=== PATIENT | male | born 1930 | race Caucasian/White ===

== ENCOUNTER 2018-02-10 16:56 | Inpatient (IN) | payer MEDICARE, MEDICAID ==
[~2018-02-10] VITALS: Ht 172.7 cm; Wt 76.5 kg
[2018-02-10 18:27] LABS: BASOPHILS % (AUTO) 0.3 % (0-1); EOSINOPHILS # (AUTO) 0.3 X10'3 (0-0.9); EOSINOPHILS % (AUTO) 1.9 % (0-6); HEMATOCRIT 36.4 % (42.0-52.0); HEMOGLOBIN 11.7 g/dl (14.0-17.9); LYMPHOCYTES # (AUTO) 0.4 X10'3 (1.1-4.8); LYMPHOCYTES % (AUTO) 2.8 % (21-51); MEAN CORPUSCULAR HEMOGLOBIN 28.5 PG (27.0-31.0); MEAN CORPUSCULAR HGB CONC 32.1 % (33.0-36.5); MEAN CORPUSCULAR VOLUME 88.9 FL (78-98); MEAN PLATELET VOLUME 8.6 FL (7.4-10.4); MONOCYTES # (AUTO) 0.3 X10'3 (0-0.9); MONOCYTES % (AUTO) 1.9 % (2-12); NEUTROPHILS # (AUTO) 13.9 X10'3 (1.8-7.7); NEUTROPHILS % (AUTO) 93.1 % (42-75); PLATELET COUNT 328 X10'3 (140-440); RED CELL DISTRIBUTION WIDTH 14.6 % (11.5-14.5); WHITE BLOOD COUNT 14.9 X10'3 (4.5-11.0)
[2018-02-10 18:50] LABS: ALANINE AMINOTRANSFERASE 23 U/L (12-78); ALBUMIN 3.1 G/DL (3.4-5.0); ALBUMIN/GLOBULIN RATIO 0.7 (1.1-1.5); ALKALINE PHOSPHATASE 96 IU/L (46-116); ANION GAP 7 (8-16); ASPARTATE AMINO TRANSFERASE 14 U/L (10-37); BILIRUBIN,TOTAL 0.4 MG/DL (0.1-1.0); BLOOD UREA NITROGEN 29 MG/DL (7-18); CALCIUM 8.7 MG/DL (8.5-10.1); CHLORIDE 100 MMOL/L (99-107); CREATININE 1.53 MG/DL (0.60-1.10); GLUCOSE 210 MG/DL (70-104); INR 1.2 INR; MAGNESIUM 2.4 MG/DL (1.5-2.4); PARTIAL THROMBOPLASTIN TIME 26 SECONDS (22-32); POTASSIUM 4.1 MMOL/L (3.5-5.1); PROTHROMBIN TIME 11.6 SECONDS (9.0-12.0); SODIUM 144 MMOL/L (135-145); TOTAL CARBON DIOXIDE 37.5 MMOL/L (24-32); TOTAL PROTEIN 7.7 G/DL (6.4-8.2); eGFR 43 ML/MIN
[2018-02-10] MEDS ORDERED: normal saline 1000ML IV soln IV ONE (18:55)
[2018-02-10] MEDS ORDERED: pantoprazole 40 MG vial IV ONE (19:50)
[2018-02-10] MEDS ORDERED: octreotide inj. 1,250 MCG in normal saline 250ml IV soln 250 ML IV ONE (21:40)
[2018-02-10] MEDS ORDERED: ondansetron/PF 4mg/2ml inj IV ONE (21:40)
[2018-02-10] MEDS ORDERED: CefTRIAXone 2gm/D5W 50ml 50 ML IV ONE (21:55)
[2018-02-10] MEDS ORDERED: azithromycin/NS 500mg/250ml 250 ML IV ONE (21:55)
[2018-02-10] MEDS ORDERED: tranexamic acid 100mg/ml inj. IV ONE (22:15)
[2018-02-10] MEDS ORDERED: albumin (Human) 5% 250ml 250 ML IV ONE ×2 (22:15→22:20)
[2018-02-10] MEDS ORDERED: normal saline 1000ml 1,000 ML IV ONE ×2 (22:20→23:20)
[2018-02-10 22:23] LABS: BASOPHILS # (AUTO) 0.1 X10'3 (0-0.2); BASOPHILS % (AUTO) 0.9 % (0-1); EOSINOPHILS % (AUTO) 0 % (0-6); HEMATOCRIT 27.3 % (42.0-52.0); HEMOGLOBIN 8.8 g/dl (14.0-17.9); LYMPHOCYTES # (AUTO) 0.3 X10'3 (1.1-4.8); LYMPHOCYTES % (AUTO) 1.7 % (21-51); MEAN CORPUSCULAR HGB CONC 32.4 % (33.0-36.5); MEAN CORPUSCULAR VOLUME 89.4 FL (78-98); MEAN PLATELET VOLUME 8.9 FL (7.4-10.4); MONOCYTES # (AUTO) 0.6 X10'3 (0-0.9); MONOCYTES % (AUTO) 3.8 % (2-12); NEUTROPHILS # (AUTO) 15.5 X10'3 (1.8-7.7); NEUTROPHILS % (AUTO) 93.6 % (42-75); PLATELET COUNT 257 X10'3 (140-440); RED BLOOD COUNT 3.05 X10'6 (4.70-6.10); RED CELL DISTRIBUTION WIDTH 14.8 % (11.5-14.5); WHITE BLOOD COUNT 16.6 X10'3 (4.5-11.0)
[2018-02-10] MEDS ORDERED: metroNIDAZOLE-Flagyl 500mg/NS 100 ML IV STA (22:49)
[2018-02-10] MEDS ORDERED: METO-539 PO (23:23)
[2018-02-10] MEDS: K, MAG and/or Phos replacement - Verify level? MC SCH (23:35)
[2018-02-10] MEDS ORDERED: morphine 2 MG/ML inj. syringe IV PRN (23:35)
[2018-02-10] MEDS ORDERED: morphine 4 MG/ML inj SYRINge IV PRN (23:35)
[2018-02-10] MEDS ORDERED: potassium Cl 20 mEq SR tablet PO PRN ×2 (23:35)
[2018-02-10] MEDS: normal saline 1000ml 1,000 ML IV SCH (23:35)
[2018-02-10] MEDS ORDERED: ondansetron/PF 4mg/2ml inj IV PRN (23:35)
[2018-02-10] MEDS ORDERED: acetaminophen 325mg tablet PO PRN (23:35)
[2018-02-10] MEDS ORDERED: potassium Cl 40MEQ/250ML bag 250 ML IV PRN (23:35)
[2018-02-10] MEDS: pantoprazole 40MG/NS 100ML BAG 100 ML IV SCH (23:39)
[2018-02-10 23:57] LABS: CLARITY,URINE CLEAR (Clear); COLOR,URINE YELLOW (Yellow); GLUCOSE, URINE NEGATIVE (Neg); KETONES,URINE TRACE mg/dl (Neg); LEUKOCYTE ESTERASE ,URINE NEGATIVE (Neg); NITRITES, URINE NEGATIVE (Neg); OCCULT BLOOD,URINE SMALL (Neg); PH,URINE 8.5 (4.8-8.0); PROTEIN,URINE TRACE mg/dl (Neg); UROBILINOGEN,URINE 0.2 E.U/dL (0.2-1.0)
[2018-02-10 23:59] LABS: UA COLLECTION TYPE FOLEY CATH
[2018-02-11] VITALS (31 sets, daily range): BP systolic 99–149; BP diastolic 51–79
[2018-02-11 00:17] LABS: MUCUS STRANDS MANY /LPF (Neg)
[2018-02-11 00:18] LABS: BACTERIA,URINE 1+ /HPF (Neg); SQUAMOUS EPITHELIAL CELL,UR FEW /LPF (FEW)
[2018-02-11 00:28] LABS: PLATELET ESTIMATE NORMAL; TOTAL CELLS COUNTED 100
[2018-02-11] MEDS: pantoprazole 40MG/NS 100ML BAG 100 ML IV SCH ×5 (01:00→19:15)
[2018-02-11 02:01] LABS: ALANINE AMINOTRANSFERASE 14 U/L (12-78); ALBUMIN 2.5 G/DL (3.4-5.0); ALBUMIN/GLOBULIN RATIO 0.9 (1.1-1.5); ALKALINE PHOSPHATASE 59 IU/L (46-116); ANION GAP 6 (8-16); ASPARTATE AMINO TRANSFERASE 10 U/L (10-37); BILIRUBIN,TOTAL 0.5 MG/DL (0.1-1.0); BLOOD UREA NITROGEN 31 MG/DL (7-18); BUN/CREATININE RATIO 25.4 (5.4-32.0); CALCIUM 6.9 MG/DL (8.5-10.1); CHLORIDE 110 MMOL/L (99-107); CREATININE 1.22 MG/DL (0.60-1.10); GLUCOSE 152 MG/DL (70-104); MAGNESIUM 1.8 MG/DL (1.5-2.4); PHOSPHORUS 3.7 MG/DL (2.3-4.5); POTASSIUM 4.5 MMOL/L (3.5-5.1); SODIUM 146 MMOL/L (135-145); TOTAL CARBON DIOXIDE 29.6 MMOL/L (24-32); TOTAL PROTEIN 5.2 G/DL (6.4-8.2); eGFR 56 ML/MIN
[2018-02-11 02:10] LABS: OXYGEN SATURATION (MIXED VEN) 78.7 % (60-80)
[2018-02-11 02:19] LABS: BASOPHILS % (AUTO) 0 % (0-1); EOSINOPHILS % (AUTO) 0 % (0-6); LYMPHOCYTES # (AUTO) 0.3 X10'3 (1.1-4.8); LYMPHOCYTES % (AUTO) 1.9 % (21-51); MEAN CORPUSCULAR HEMOGLOBIN 29.2 PG (27.0-31.0); MEAN CORPUSCULAR HGB CONC 32.7 % (33.0-36.5); MEAN CORPUSCULAR VOLUME 89.4 FL (78-98); MEAN PLATELET VOLUME 8.9 FL (7.4-10.4); MONOCYTES # (AUTO) 0.9 X10'3 (0-0.9); MONOCYTES % (AUTO) 5.5 % (2-12); NEUTROPHILS # (AUTO) 15.5 X10'3 (1.8-7.7); NEUTROPHILS % (AUTO) 92.6 % (42-75); PLATELET COUNT 182 X10'3 (140-440); RED BLOOD COUNT 2.29 X10'6 (4.70-6.10); RED CELL DISTRIBUTION WIDTH 14.6 % (11.5-14.5); WHITE BLOOD COUNT 16.8 X10'3 (4.5-11.0)
[2018-02-11 02:23] LABS: HEMATOCRIT 20.5 % (42.0-52.0); HEMOGLOBIN 6.7 g/dl (14.0-17.9)
[2018-02-11 03:43] LABS: PLATELET ESTIMATE NORMAL; TOTAL CELLS COUNTED 100
[2018-02-11 03:44] LABS: HYPOCHROMASIA 1+
[2018-02-11] MEDS ORDERED: levoFLOXACIN-Levaquin 750MG/D5 150 ML IV SCH (08:00)
[2018-02-11] MEDS: K, MAG and/or Phos replacement - Verify level? MC SCH (08:00)
[2018-02-11] MEDS ORDERED: K, MAG and/or Phos replacement - Verify level? MC SCH (08:00)
[2018-02-11] MEDS: metroNIDAZOLE-Flagyl 500mg/NS 100 ML IV SCH ×3 (08:33→15:33)
[2018-02-11] MEDS ORDERED: METO25TA6 PO (09:23)
[2018-02-11] MEDS ORDERED: PANT-47 PO (09:23)
[2018-02-11] MEDS: normal saline 1000ml 1,000 ML IV SCH ×2 (09:35→15:30)
[2018-02-11 10:08] LABS: HEMATOCRIT 26.3 % (42.0-52.0); HEMOGLOBIN 8.7 g/dl (14.0-17.9); MEAN CORPUSCULAR HEMOGLOBIN 28.9 PG (27.0-31.0); MEAN CORPUSCULAR HGB CONC 33.1 % (33.0-36.5); MEAN CORPUSCULAR VOLUME 87.2 FL (78-98); MEAN PLATELET VOLUME 8.9 FL (7.4-10.4); PLATELET COUNT 170 X10'3 (140-440); RED BLOOD COUNT 3.02 X10'6 (4.70-6.10); WHITE BLOOD COUNT 17.9 X10'3 (4.5-11.0)
[2018-02-11] MEDS ORDERED: fentaNYL/PF 50MCG/1 ML 2ML syringe ONE (12:14)
[2018-02-11] MEDS ORDERED: MIDAZolam 5mg/5ml vial ONE (12:15)
[2018-02-11] MEDS ORDERED: LIDOcaine Viscous 15ml cup ONE (12:15)
[2018-02-11 14:08] LABS: HEMATOCRIT 26.1 % (42.0-52.0); HEMOGLOBIN 8.5 g/dl (14.0-17.9); MEAN CORPUSCULAR HEMOGLOBIN 28.5 PG (27.0-31.0); MEAN CORPUSCULAR HGB CONC 32.6 % (33.0-36.5); MEAN CORPUSCULAR VOLUME 87.3 FL (78-98); MEAN PLATELET VOLUME 9.1 FL (7.4-10.4); PLATELET COUNT 172 X10'3 (140-440); RED BLOOD COUNT 2.99 X10'6 (4.70-6.10); RED CELL DISTRIBUTION WIDTH 16.4 % (11.5-14.5); WHITE BLOOD COUNT 18.6 X10'3 (4.5-11.0)
[2018-02-11] MEDS ORDERED: piperacillin/tazo 3.375gm/50ml 50 ML IV SCH (15:15)
[2018-02-11] MEDS: meropenem inj 1 GM in normal saline 100ml IV soln 100 ML IV SCH ×2 (16:38→23:30)
[2018-02-11 17:38] LABS: HEMATOCRIT 27.2 % (42.0-52.0); HEMOGLOBIN 8.9 g/dl (14.0-17.9); MEAN CORPUSCULAR HEMOGLOBIN 28.7 PG (27.0-31.0); MEAN CORPUSCULAR HGB CONC 32.8 % (33.0-36.5); MEAN CORPUSCULAR VOLUME 87.4 FL (78-98); MEAN PLATELET VOLUME 8.7 FL (7.4-10.4); PLATELET COUNT 181 X10'3 (140-440); RED BLOOD COUNT 3.11 X10'6 (4.70-6.10); RED CELL DISTRIBUTION WIDTH 16.6 % (11.5-14.5)
[2018-02-11] MEDS: acetaminophen 325mg tablet PO PRN (21:26)
[2018-02-11 21:31] LABS: HEMATOCRIT 26.8 % (42.0-52.0); HEMOGLOBIN 8.8 g/dl (14.0-17.9); MEAN CORPUSCULAR HEMOGLOBIN 28.8 PG (27.0-31.0); MEAN CORPUSCULAR HGB CONC 32.8 % (33.0-36.5); MEAN CORPUSCULAR VOLUME 87.8 FL (78-98); MEAN PLATELET VOLUME 8.9 FL (7.4-10.4); PLATELET COUNT 184 X10'3 (140-440); RED BLOOD COUNT 3.06 X10'6 (4.70-6.10); RED CELL DISTRIBUTION WIDTH 16.2 % (11.5-14.5); WHITE BLOOD COUNT 19.1 X10'3 (4.5-11.0)
[2018-02-12] VITALS (24 sets, daily range): BP systolic 81–140; BP diastolic 34–76
[2018-02-12] MEDS: pantoprazole 40MG/NS 100ML BAG 100 ML IV SCH ×2 (00:10→05:32)
[2018-02-12 01:51] LABS: ALANINE AMINOTRANSFERASE 13 U/L (12-78); ALBUMIN/GLOBULIN RATIO 0.7 (1.1-1.5); ALKALINE PHOSPHATASE 59 IU/L (46-116); ANION GAP 5 (8-16); ASPARTATE AMINO TRANSFERASE 17 U/L (10-37); BASOPHILS % (AUTO) 0.1 % (0-1); BILIRUBIN,TOTAL 0.5 MG/DL (0.1-1.0); BLOOD UREA NITROGEN 25 MG/DL (7-18); BUN/CREATININE RATIO 18.9 (5.4-32.0); CALCIUM 7.1 MG/DL (8.5-10.1); CHLORIDE 111 MMOL/L (99-107); CREATININE 1.32 MG/DL (0.60-1.10); EOSINOPHILS % (AUTO) 0 % (0-6); GLUCOSE 191 MG/DL (70-104); HEMATOCRIT 23.4 % (42.0-52.0); LYMPHOCYTES # (AUTO) 0.3 X10'3 (1.1-4.8); LYMPHOCYTES % (AUTO) 1.8 % (21-51); MAGNESIUM 1.8 MG/DL (1.5-2.4); MEAN CORPUSCULAR HEMOGLOBIN 30.1 PG (27.0-31.0); MEAN CORPUSCULAR HGB CONC 34.3 % (33.0-36.5); MEAN CORPUSCULAR VOLUME 87.8 FL (78-98); MEAN PLATELET VOLUME 9.1 FL (7.4-10.4); MONOCYTES # (AUTO) 1.2 X10'3 (0-0.9); MONOCYTES % (AUTO) 6.2 % (2-12); NEUTROPHILS # (AUTO) 17.4 X10'3 (1.8-7.7); NEUTROPHILS % (AUTO) 91.9 % (42-75); PLATELET COUNT 144 X10'3 (140-440); RED BLOOD COUNT 2.66 X10'6 (4.70-6.10); RED CELL DISTRIBUTION WIDTH 15.6 % (11.5-14.5); SODIUM 146 MMOL/L (135-145); TOTAL CARBON DIOXIDE 29.7 MMOL/L (24-32); TOTAL PROTEIN 4.7 G/DL (6.4-8.2); WHITE BLOOD COUNT 18.9 X10'3 (4.5-11.0); eGFR 52 ML/MIN
[2018-02-12] MEDS: normal saline 1000ml 1,000 ML IV SCH (02:35)
[2018-02-12 05:48] LABS: HEMATOCRIT 25.1 % (42.0-52.0); HEMOGLOBIN 8.2 g/dl (14.0-17.9); MEAN CORPUSCULAR HEMOGLOBIN 28.8 PG (27.0-31.0); MEAN CORPUSCULAR HGB CONC 32.8 % (33.0-36.5); MEAN CORPUSCULAR VOLUME 87.7 FL (78-98); MEAN PLATELET VOLUME 8.1 FL (7.4-10.4); PLATELET COUNT 157 X10'3 (140-440); RED BLOOD COUNT 2.86 X10'6 (4.70-6.10); RED CELL DISTRIBUTION WIDTH 16.5 % (11.5-14.5); WHITE BLOOD COUNT 18.2 X10'3 (4.5-11.0)
[2018-02-12] MEDS: K, MAG and/or Phos replacement - Verify level? MC SCH (07:12)
[2018-02-12] MEDS: meropenem inj 1 GM in normal saline 100ml IV soln 100 ML IV SCH (07:48)
[2018-02-12] MEDS ORDERED: aminophylline 250mg/10ml inj. IV PRN (09:20)
[2018-02-12] MEDS ORDERED: metoprolol tartrate 1mg/ml inj IV PRN (09:20)
[2018-02-12] MEDS ORDERED: total parenteral nutrition 1 EACH, calcium gluconate 12 MEQ, magnesium 16 MEQ, sodium 8... IV SCH ×14 (09:20)
[2018-02-12] MEDS ORDERED: regadenoson 0.4mg/5ml syringe IV ONE (09:20)
[2018-02-12] MEDS ORDERED: nitroGLYCERIN 0.4mg SUBLingual tab SL PRN (09:20)
[2018-02-12] MEDS: pantoprazole 40 MG vial IV SCH ×2 (09:57→20:18)
[2018-02-12 10:05] LABS: HEMATOCRIT 25.5 % (42.0-52.0); HEMOGLOBIN 8.2 g/dl (14.0-17.9); MEAN CORPUSCULAR HEMOGLOBIN 28.6 PG (27.0-31.0); MEAN CORPUSCULAR HGB CONC 32.4 % (33.0-36.5); MEAN CORPUSCULAR VOLUME 88.5 FL (78-98); MEAN PLATELET VOLUME 9.1 FL (7.4-10.4); PLATELET COUNT 157 X10'3 (140-440); RED BLOOD COUNT 2.88 X10'6 (4.70-6.10); WHITE BLOOD COUNT 18.5 X10'3 (4.5-11.0)
[2018-02-12 13:58] LABS: HEMATOCRIT 26.6 % (42.0-52.0); HEMOGLOBIN 8.6 g/dl (14.0-17.9); MEAN CORPUSCULAR HEMOGLOBIN 28.6 PG (27.0-31.0); MEAN CORPUSCULAR HGB CONC 32.3 % (33.0-36.5); MEAN CORPUSCULAR VOLUME 88.5 FL (78-98); MEAN PLATELET VOLUME 8.9 FL (7.4-10.4); PLATELET COUNT 163 X10'3 (140-440); RED CELL DISTRIBUTION WIDTH 16.6 % (11.5-14.5); WHITE BLOOD COUNT 17.4 X10'3 (4.5-11.0)
[2018-02-12] MEDS: cefepime 1GM/NS ADD-VANTAGE 100 ML IV SCH (15:51)
[2018-02-12 17:34] LABS: HEMATOCRIT 26.2 % (42.0-52.0); HEMOGLOBIN 8.5 g/dl (14.0-17.9); MEAN CORPUSCULAR HEMOGLOBIN 28.6 PG (27.0-31.0); MEAN CORPUSCULAR HGB CONC 32.3 % (33.0-36.5); MEAN CORPUSCULAR VOLUME 88.6 FL (78-98); PLATELET COUNT 165 X10'3 (140-440); RED BLOOD COUNT 2.96 X10'6 (4.70-6.10); RED CELL DISTRIBUTION WIDTH 16.5 % (11.5-14.5); WHITE BLOOD COUNT 16.8 X10'3 (4.5-11.0)
[2018-02-12] MEDS: metroNIDAZOLE-Flagyl 500mg/NS 100 ML IV SCH (20:18)
[2018-02-12] MEDS ORDERED: Dextrose 10%-water IV solution 1,000 ML IV PRN (21:00)
[2018-02-12] MEDS: fat emulsion IV 200 ML, MVI, adult No.4 with vit. K 10 ML, Trace element-5 inj. 1 ML in... IV SCH ×4 (21:06)
[2018-02-12 21:27] LABS: HEMOGLOBIN 8.1 g/dl (14.0-17.9); MEAN CORPUSCULAR HEMOGLOBIN 28.7 PG (27.0-31.0); MEAN CORPUSCULAR HGB CONC 32.6 % (33.0-36.5); MEAN CORPUSCULAR VOLUME 88.3 FL (78-98); MEAN PLATELET VOLUME 8.9 FL (7.4-10.4); PLATELET COUNT 164 X10'3 (140-440); RED BLOOD COUNT 2.83 X10'6 (4.70-6.10); RED CELL DISTRIBUTION WIDTH 16.7 % (11.5-14.5); WHITE BLOOD COUNT 15.1 X10'3 (4.5-11.0)
[2018-02-13] VITALS (35 sets, daily range): BP systolic 96–171; BP diastolic 47–86
[2018-02-13] MEDS: cefepime 1GM/NS ADD-VANTAGE 100 ML IV SCH ×3 (00:10→15:32)
[2018-02-13 02:45] LABS: BASOPHILS % (AUTO) 0 % (0-1); EOSINOPHILS % (AUTO) 0 % (0-6); HEMOGLOBIN 7.9 g/dl (14.0-17.9); LYMPHOCYTES # (AUTO) 0.4 X10'3 (1.1-4.8); LYMPHOCYTES % (AUTO) 2.9 % (21-51); MEAN CORPUSCULAR HGB CONC 32.9 % (33.0-36.5); MEAN CORPUSCULAR VOLUME 88.4 FL (78-98); MONOCYTES # (AUTO) 0.9 X10'3 (0-0.9); MONOCYTES % (AUTO) 6.7 % (2-12); NEUTROPHILS # (AUTO) 11.6 X10'3 (1.8-7.7); NEUTROPHILS % (AUTO) 90.4 % (42-75); PLATELET COUNT 156 X10'3 (140-440); RED BLOOD COUNT 2.72 X10'6 (4.70-6.10); RED CELL DISTRIBUTION WIDTH 16.1 % (11.5-14.5); WHITE BLOOD COUNT 12.9 X10'3 (4.5-11.0)
[2018-02-13 04:41] LABS: ANION GAP 8 (8-16); BILIRUBIN,TOTAL 0.3 MG/DL (0.1-1.0); BLOOD UREA NITROGEN 19 MG/DL (7-18); BUN/CREATININE RATIO 18.1 (5.4-32.0); CALCIUM 7.7 MG/DL (8.5-10.1); CHLORIDE 112 MMOL/L (99-107); CREATININE 1.05 MG/DL (0.60-1.10); GLUCOSE 143 MG/DL (70-104); PHOSPHORUS 1.8 MG/DL (2.3-4.5); POTASSIUM 3.4 MMOL/L (3.5-5.1); SODIUM 148 MMOL/L (135-145); TOTAL CARBON DIOXIDE 28.1 MMOL/L (24-32); eGFR 67 ML/MIN
[2018-02-13 04:42] LABS: ALANINE AMINOTRANSFERASE 16 U/L (12-78); ALBUMIN/GLOBULIN RATIO 0.6 (1.1-1.5); ALKALINE PHOSPHATASE 70 IU/L (46-116); ASPARTATE AMINO TRANSFERASE 19 U/L (10-37); PREALBUMIN 9.6 MG/DL (19-36); TOTAL PROTEIN 5.1 G/DL (6.4-8.2); TRIGLYCERIDES 35 MG/DL (20-135)
[2018-02-13] MEDS: K, MAG and/or Phos replacement - Verify level? MC SCH (06:48)
[2018-02-13] MEDS: potassium Cl 40MEQ/250ML bag 250 ML IV SCH (07:16)
[2018-02-13] MEDS: metroNIDAZOLE-Flagyl 500mg/NS 100 ML IV SCH ×2 (07:35→19:43)
[2018-02-13] MEDS ORDERED: regadenoson 0.4mg/5ml syringe IV ONE ×2 (07:50→08:46)
[2018-02-13] MEDS ORDERED: aminophylline 250mg/10ml inj. IV ONE (07:50)
[2018-02-13] MEDS ORDERED: levoFLOXACIN-Levaquin 750MG/D5 150 ML IV SCH (08:00)
[2018-02-13] MEDS ORDERED: aminophylline inj. 0 ML IV ONE (08:46)
[2018-02-13] MEDS: pantoprazole 40 MG vial IV SCH ×2 (10:10→19:43)
[2018-02-13] MEDS ORDERED: Neutra Phos packet PO PRN (13:05)
[2018-02-13] MEDS ORDERED: sodium phosphate inj. 15 MMOL in dextrose 5%-water 150 ML IV PRN (13:05)
[2018-02-13] MEDS ORDERED: sodium phosphate inj. 30 MMOL in dextrose 5%-water 250 ML IV PRN (13:05)
[2018-02-13] MEDS ORDERED: potassium phosphate inj 30 MMOL in dextrose 5%-water 250 ML IV PRN (13:11)
[2018-02-13] MEDS: potassium phosphate inj 15 MMOL in dextrose 5%-water 150 ML IV PRN (13:59)
[2018-02-13] MEDS: diltiazem 30mg tablet PO SCH ×2 (15:23→19:42)
[2018-02-13 21:16] LABS: HEMATOCRIT 32.2 % (42.0-52.0); HEMOGLOBIN 10.8 g/dl (14.0-17.9); MEAN CORPUSCULAR HEMOGLOBIN 29.5 PG (27.0-31.0); MEAN CORPUSCULAR HGB CONC 33.4 % (33.0-36.5); MEAN CORPUSCULAR VOLUME 88.3 FL (78-98); MEAN PLATELET VOLUME 9.1 FL (7.4-10.4); PLATELET COUNT 151 X10'3 (140-440); RED BLOOD COUNT 3.65 X10'6 (4.70-6.10); RED CELL DISTRIBUTION WIDTH 14.7 % (11.5-14.5); WHITE BLOOD COUNT 13.3 X10'3 (4.5-11.0)
[2018-02-14] VITALS (23 sets, daily range): BP systolic 115–157; BP diastolic 39–80
[2018-02-14] MEDS: cefepime 1GM/NS ADD-VANTAGE 100 ML IV SCH ×3 (00:12→16:15)
[2018-02-14] MEDS: diltiazem 30mg tablet PO SCH ×4 (02:05→20:56)
[2018-02-14 03:51] LABS: BASOPHILS % (AUTO) 0.1 % (0-1); EOSINOPHILS % (AUTO) 0 % (0-6); HEMOGLOBIN 11.1 g/dl (14.0-17.9); LYMPHOCYTES # (AUTO) 0.3 X10'3 (1.1-4.8); LYMPHOCYTES % (AUTO) 2.5 % (21-51); MEAN CORPUSCULAR HEMOGLOBIN 29.6 PG (27.0-31.0); MEAN CORPUSCULAR HGB CONC 33.6 % (33.0-36.5); MEAN CORPUSCULAR VOLUME 88.2 FL (78-98); MEAN PLATELET VOLUME 9.2 FL (7.4-10.4); MONOCYTES # (AUTO) 1.1 X10'3 (0-0.9); MONOCYTES % (AUTO) 8.3 % (2-12); NEUTROPHILS # (AUTO) 11.4 X10'3 (1.8-7.7); NEUTROPHILS % (AUTO) 89.1 % (42-75); PLATELET COUNT 156 X10'3 (140-440); RED BLOOD COUNT 3.74 X10'6 (4.70-6.10); RED CELL DISTRIBUTION WIDTH 15.4 % (11.5-14.5); WHITE BLOOD COUNT 12.8 X10'3 (4.5-11.0)
[2018-02-14 04:17] LABS: ALANINE AMINOTRANSFERASE 15 U/L (12-78); ALBUMIN 2.1 G/DL (3.4-5.0); ALBUMIN/GLOBULIN RATIO 0.6 (1.1-1.5); ALKALINE PHOSPHATASE 70 IU/L (46-116); ANION GAP 3 (8-16); ASPARTATE AMINO TRANSFERASE 16 U/L (10-37); BILIRUBIN,TOTAL 0.8 MG/DL (0.1-1.0); BLOOD UREA NITROGEN 16 MG/DL (7-18); CALCIUM 7.8 MG/DL (8.5-10.1); CHLORIDE 110 MMOL/L (99-107); GLUCOSE 143 MG/DL (70-104); MAGNESIUM 1.8 MG/DL (1.5-2.4); PHOSPHORUS 2.2 MG/DL (2.3-4.5); POTASSIUM 3.2 MMOL/L (3.5-5.1); SODIUM 145 MMOL/L (135-145); TOTAL CARBON DIOXIDE 31.6 MMOL/L (24-32); TOTAL PROTEIN 5.6 G/DL (6.4-8.2); eGFR 71 ML/MIN
[2018-02-14] MEDS: pantoprazole 40 MG vial IV SCH ×2 (07:22→20:56)
[2018-02-14] MEDS: metroNIDAZOLE-Flagyl 500mg/NS 100 ML IV SCH (07:22)
[2018-02-14] MEDS: K, MAG and/or Phos replacement - Verify level? MC SCH (08:00)
[2018-02-14] MEDS: potassium phosphate inj 15 MMOL in dextrose 5%-water 150 ML IV PRN (08:43)
[2018-02-14] MEDS: potassium Cl 40MEQ/250ML bag 250 ML IV SCH (08:43)
[2018-02-14] MEDS: acetaminophen 325mg tablet PO PRN (11:27)
[2018-02-14] MEDS ORDERED: acetaminophen 325mg tablet PO PRN (13:20)
[2018-02-14 18:19] LABS: PHOSPHORUS 2.4 MG/DL (2.3-4.5); POTASSIUM 3.8 MMOL/L (3.5-5.1)
[2018-02-14] MEDS: fat emulsion IV 200 ML, MVI, adult No.4 with vit. K 10 ML, Trace element-5 inj. 1 ML in... IV SCH ×4 (20:56)
[2018-02-15] VITALS (27 sets, daily range): BP systolic 104–154; BP diastolic 32–81
[2018-02-15] MEDS: cefepime 1GM/NS ADD-VANTAGE 100 ML IV SCH ×3 (01:13→16:08)
[2018-02-15] MEDS: diltiazem 30mg tablet PO SCH ×4 (03:04→20:00)
[2018-02-15 03:05] LABS: BASOPHILS % (AUTO) 0.1 % (0-1); EOSINOPHILS % (AUTO) 0.3 % (0-6); HEMATOCRIT 32.1 % (42.0-52.0); HEMOGLOBIN 10.5 g/dl (14.0-17.9); LYMPHOCYTES # (AUTO) 0.3 X10'3 (1.1-4.8); LYMPHOCYTES % (AUTO) 2.8 % (21-51); MEAN CORPUSCULAR HEMOGLOBIN 29.2 PG (27.0-31.0); MEAN CORPUSCULAR HGB CONC 32.8 % (33.0-36.5); MEAN CORPUSCULAR VOLUME 89.1 FL (78-98); MEAN PLATELET VOLUME 8.9 FL (7.4-10.4); MONOCYTES # (AUTO) 1.1 X10'3 (0-0.9); MONOCYTES % (AUTO) 9.7 % (2-12); NEUTROPHILS # (AUTO) 9.8 X10'3 (1.8-7.7); NEUTROPHILS % (AUTO) 87.1 % (42-75); PLATELET COUNT 169 X10'3 (140-440); RED CELL DISTRIBUTION WIDTH 15.6 % (11.5-14.5); WHITE BLOOD COUNT 11.2 X10'3 (4.5-11.0)
[2018-02-15 03:50] LABS: GLUCOSE 163 MG/DL (70-104); SODIUM 142 MMOL/L (135-145)
[2018-02-15 03:51] LABS: ALANINE AMINOTRANSFERASE 11 U/L (12-78); ALBUMIN 1.9 G/DL (3.4-5.0); ALBUMIN/GLOBULIN RATIO 0.5 (1.1-1.5); ALKALINE PHOSPHATASE 63 IU/L (46-116); ANION GAP 4 (8-16); ASPARTATE AMINO TRANSFERASE 13 U/L (10-37); BILIRUBIN,TOTAL 0.5 MG/DL (0.1-1.0); BLOOD UREA NITROGEN 23 MG/DL (7-18); BUN/CREATININE RATIO 23.5 (5.4-32.0); CALCIUM 7.8 MG/DL (8.5-10.1); CHLORIDE 109 MMOL/L (99-107); CREATININE 0.98 MG/DL (0.60-1.10); MAGNESIUM 1.9 MG/DL (1.5-2.4); PHOSPHORUS 2.5 MG/DL (2.3-4.5); POTASSIUM 3.5 MMOL/L (3.5-5.1); TOTAL CARBON DIOXIDE 29.2 MMOL/L (24-32); TOTAL PROTEIN 5.4 G/DL (6.4-8.2); eGFR 73 ML/MIN
[2018-02-15] MEDS ORDERED: LIDOcaine 1% (10mg/ml) 2ml vial ONE (07:04)
[2018-02-15] MEDS: pantoprazole 40 MG vial IV SCH ×2 (07:50→20:19)
[2018-02-15] MEDS ORDERED: vancomycin/NS 1 GM ADD-VANTAGE 250 ML IV SCH (08:00)
[2018-02-15 08:04] LABS: ANISOCYTOSIS 1+; PLATELET ESTIMATE NORMAL; POIKILOCYTOSIS 1+; TOTAL CELLS COUNTED 100
[2018-02-15] MEDS ORDERED: fentaNYL /PF 50mcg/ml 5ml ampule ONE (08:11)
[2018-02-15] MEDS ORDERED: midazolam 2 mg/2 ml injection ONE (08:11)
[2018-02-15] MEDS ORDERED: rocuronium 10mg/ml inj IV ONE (08:32)
[2018-02-15] MEDS ORDERED: LIDOcaine 2% (20mg/ml) 5ml vial ONE (08:32)
[2018-02-15] MEDS ORDERED: phenylephrine 10mg/ml inj. ONE (08:32)
[2018-02-15] MEDS ORDERED: propofol inj 20 ML IV ONE (08:32)
[2018-02-15] MEDS ORDERED: sevoflurane 250ml liquid IH ONE (08:40)
[2018-02-15] MEDS ORDERED: NORepinephrine 1 mg/ml inj IV ONE (08:48)
[2018-02-15 09:41] LABS: ISTAT ANION GAP 9 (8-12); ISTAT BUN 22 mg/dL (6-19); ISTAT CL 106 mmol/L (99-107); ISTAT CREATININE 0.8 mg/dL (0.8-1.3); ISTAT GLUCOSE 151 mg/dL (70-104); ISTAT HGB 9.2 g/dl (14.0-18.0); ISTAT Hct 27 %PCV (42-52); ISTAT IONIZED CALCIUM 1.13 mmol/L (1.03-1.32); ISTAT K 3.7 mmol/L (3.5-5.1); ISTAT NA 141 mmol/L (135-145); ISTAT TOTAL CO2 26 mmol/L (24-32); ISTAT eGFR > 90 ML/MIN; POC BUN/CREATININE RATIO 27.5 (5.4-32.0)
[2018-02-15] MEDS ORDERED: magnesium hydroxide 30ml (MOM) UD suspension PO PRN (10:30)
[2018-02-15] MEDS ORDERED: morphine 4 MG/ML inj SYRINge IV PRN (10:30)
[2018-02-15] MEDS ORDERED: magnesium 4gm in 100ml NS 100 ML IV PRN (10:30)
[2018-02-15] MEDS ORDERED: morphine 2 MG/ML inj. syringe IV PRN (10:30)
[2018-02-15] MEDS ORDERED: potassium Cl 20 mEq SR tablet PO PRN ×2 (10:30)
[2018-02-15] MEDS ORDERED: sodium phosphate inj. 30 MMOL in dextrose 5%-water 250 ML IV PRN (10:30)
[2018-02-15] MEDS ORDERED: magnesium 1gm/100ml D5W IVPB 100 ML IV PRN (10:30)
[2018-02-15] MEDS ORDERED: ipratropium/albuterol 3ml nebule NEB PRN (10:30)
[2018-02-15] MEDS ORDERED: sodium phosphate inj. 15 MMOL in dextrose 5%-water 150 ML IV PRN (10:30)
[2018-02-15] MEDS ORDERED: magnesium Cl slow-release 64mg tablet PO PRN (10:30)
[2018-02-15] MEDS ORDERED: Neutra Phos packet PO PRN (10:30)
[2018-02-15] MEDS ORDERED: ondansetron/PF 4mg/2ml inj IV PRN (10:30)
[2018-02-15] MEDS ORDERED: acetaminophen 325mg tablet PO PRN ×2 (10:30)
[2018-02-15] MEDS: FENTANYL-0.9 % NACL/PF 100 ML IV PRN (11:04)
[2018-02-15] MEDS ORDERED: FENTANYL-0.9 % NACL/PF 100 ML IV PRN (11:05)
[2018-02-15] MEDS ORDERED: midazolam 100mg in NS 100ml 100 ML IV PRN (11:05)
[2018-02-15] MEDS: midazolam 100mg in NS 100ml 100 ML IV PRN (11:06)
[2018-02-15 11:39] LABS: HEMATOCRIT 33.3 % (42.0-52.0); HEMOGLOBIN 10.9 g/dl (14.0-17.9); MEAN CORPUSCULAR HEMOGLOBIN 29.3 PG (27.0-31.0); MEAN CORPUSCULAR HGB CONC 32.7 % (33.0-36.5); MEAN CORPUSCULAR VOLUME 89.5 FL (78-98); MEAN PLATELET VOLUME 9.1 FL (7.4-10.4); PLATELET COUNT 191 X10'3 (140-440); RED BLOOD COUNT 3.72 X10'6 (4.70-6.10); RED CELL DISTRIBUTION WIDTH 15.3 % (11.5-14.5); WHITE BLOOD COUNT 13.8 X10'3 (4.5-11.0)
[2018-02-15 11:45] LABS: % IRON SATURATION 7 % (11-46); IRON 8 UG/DL (53-167); TOTAL IRON BINDING CAPACITY 109 UG/DL (259-388)
[2018-02-15] MEDS: K, MAG and/or Phos replacement - Verify level? MC SCH (11:45)
[2018-02-15] MEDS ORDERED: acetaminophen 1,000mg/100ml IV 100 ML IV ONE (15:20)
[2018-02-15 15:31] LABS: ABG HCO3 26.5 mmol/L (22.0-26.0); ABG OXYGEN SATURATION 97.4 % (95-98); ABG PCO2 (T) 43.8 mmHg (35.0-48.0); ABG PH (T) 7.406 (7.350-7.450); ABG PO2 (T) 107.3 mmHg (83-108); ALLEN'S TEST Positive; FCOHb 0.3 % (0.5-1.5); FMetHb 0.2 % (0.3-1.12); FO2Hb 96.9 % (94-100); MINUTE VOLUME 10 L/min; PATIENT TEMPERATURE 38.6; PEEP 5 cm H2O; RESPIRATORY RATE 16 b/min; RESPIRATORY RATE (OBSERVED) 20 b/min; TIDAL VOLUME 450 mL; TOTAL HEMOGLOBIN 11.5 G/dl (14.0-18.0)
[2018-02-15] MEDS ORDERED: normal saline 1000ml 1,000 ML IV ONE ×3 (18:00→19:10)
[2018-02-15 18:20] LABS: HEMATOCRIT 30.6 % (42.0-52.0); MEAN CORPUSCULAR HEMOGLOBIN 29.4 PG (27.0-31.0); MEAN CORPUSCULAR HGB CONC 32.6 % (33.0-36.5); MEAN CORPUSCULAR VOLUME 90.2 FL (78-98); MEAN PLATELET VOLUME 9.4 FL (7.4-10.4); PLATELET COUNT 190 X10'3 (140-440); RED BLOOD COUNT 3.39 X10'6 (4.70-6.10); RED CELL DISTRIBUTION WIDTH 15.1 % (11.5-14.5); WHITE BLOOD COUNT 15.6 X10'3 (4.5-11.0)
[2018-02-15] MEDS: NORepinephrine 8mg/ 250ml NS 250 ML IV SCH (19:12)
[2018-02-15] MEDS ORDERED: albumin (Human) 5% 250ml 250 ML IV ONE (20:05)
[2018-02-15] MEDS: vancomycin/NS 1 GM ADD-VANTAGE 250 ML IV SCH (20:36)
[2018-02-15] MEDS: fat emulsion IV 200 ML, MVI, adult No.4 with vit. K 10 ML, Trace element-5 inj. 1 ML in... IV SCH ×4 (20:36)
[2018-02-16] VITALS (24 sets, daily range): BP systolic 118–144; BP diastolic 37–56
[2018-02-16] MEDS: cefepime 1GM/NS ADD-VANTAGE 100 ML IV SCH ×4 (00:10→23:22)
[2018-02-16] MEDS: diltiazem 30mg tablet PO SCH ×4 (02:00→19:45)
[2018-02-16 02:40] LABS: BASOPHILS % (AUTO) 0 % (0-1); EOSINOPHILS # (AUTO) 0.1 X10'3 (0-0.9); EOSINOPHILS % (AUTO) 0.9 % (0-6); HEMATOCRIT 28.7 % (42.0-52.0); HEMOGLOBIN 9.4 g/dl (14.0-17.9); LYMPHOCYTES # (AUTO) 0.3 X10'3 (1.1-4.8); LYMPHOCYTES % (AUTO) 2.3 % (21-51); MEAN CORPUSCULAR HEMOGLOBIN 29.4 PG (27.0-31.0); MEAN CORPUSCULAR HGB CONC 32.8 % (33.0-36.5); MEAN CORPUSCULAR VOLUME 89.7 FL (78-98); MEAN PLATELET VOLUME 9.6 FL (7.4-10.4); MONOCYTES # (AUTO) 0.9 X10'3 (0-0.9); NEUTROPHILS # (AUTO) 10.5 X10'3 (1.8-7.7); NEUTROPHILS % (AUTO) 88.8 % (42-75); PLATELET COUNT 151 X10'3 (140-440); RED CELL DISTRIBUTION WIDTH 15.5 % (11.5-14.5); WHITE BLOOD COUNT 11.8 X10'3 (4.5-11.0)
[2018-02-16 02:50] LABS: ABG BASE EXCESS -0.5 mmol/L (-2.0-3.0); ABG HCO3 24.4 mmol/L (22.0-26.0); ABG PCO2 (T) 43.8 mmHg (35.0-48.0); ABG PH (T) 7.371 (7.350-7.450); ABG PO2 (T) 67.7 mmHg (83-108); FCOHb 0.3 % (0.5-1.5); FO2Hb 91.7 % (94-100); MINUTE VOLUME 10 L/min; PATIENT TEMPERATURE 38.4; PEEP 5 cm H2O; RESPIRATORY RATE 16 b/min; RESPIRATORY RATE (OBSERVED) 21 b/min; TIDAL VOLUME 450 mL; TOTAL HEMOGLOBIN 10.4 G/dl (14.0-18.0)
[2018-02-16 02:51] LABS: PROTHROMBIN TIME 12.9 SECONDS (9.0-12.0)
[2018-02-16 02:52] LABS: INR 1.3 INR; PARTIAL THROMBOPLASTIN TIME 36 SECONDS (22-32)
[2018-02-16 02:54] LABS: ALANINE AMINOTRANSFERASE 10 U/L (12-78); ALBUMIN 1.8 G/DL (3.4-5.0); ALBUMIN/GLOBULIN RATIO 0.6 (1.1-1.5); ALKALINE PHOSPHATASE 51 IU/L (46-116); ANION GAP 3 (8-16); ASPARTATE AMINO TRANSFERASE 16 U/L (10-37); BILIRUBIN,TOTAL 0.5 MG/DL (0.1-1.0); BLOOD UREA NITROGEN 29 MG/DL (7-18); CALCIUM 7.5 MG/DL (8.5-10.1); CHLORIDE 110 MMOL/L (99-107); GLUCOSE 128 MG/DL (70-104); MAGNESIUM 1.8 MG/DL (1.5-2.4); PHOSPHORUS 2.8 MG/DL (2.3-4.5); POTASSIUM 3.9 MMOL/L (3.5-5.1); SODIUM 140 MMOL/L (135-145); TOTAL CARBON DIOXIDE 27.3 MMOL/L (24-32); TOTAL PROTEIN 4.8 G/DL (6.4-8.2); eGFR 71 ML/MIN
[2018-02-16] MEDS ORDERED: acetaminophen 650mg rectal suppository RC PRN (03:30)
[2018-02-16] MEDS: midazolam 100mg in NS 100ml 100 ML IV PRN (04:41)
[2018-02-16] MEDS: K, MAG and/or Phos replacement - Verify level? MC SCH (06:38)
[2018-02-16] MEDS: pantoprazole 40 MG vial IV SCH ×2 (08:28→19:46)
[2018-02-16] MEDS: FENTANYL-0.9 % NACL/PF 100 ML IV PRN ×2 (08:34→23:13)
[2018-02-16] MEDS: vancomycin/NS 1 GM ADD-VANTAGE 250 ML IV SCH ×2 (09:37→20:39)
[2018-02-16 11:09] LABS: HEMATOCRIT 28.9 % (42.0-52.0); HEMOGLOBIN 9.3 g/dl (14.0-17.9); MEAN CORPUSCULAR HGB CONC 32.3 % (33.0-36.5); MEAN CORPUSCULAR VOLUME 89.9 FL (78-98); MEAN PLATELET VOLUME 9.3 FL (7.4-10.4); PLATELET COUNT 165 X10'3 (140-440); RED BLOOD COUNT 3.21 X10'6 (4.70-6.10); RED CELL DISTRIBUTION WIDTH 15.9 % (11.5-14.5); WHITE BLOOD COUNT 12.8 X10'3 (4.5-11.0)
[2018-02-16] MEDS ORDERED: MESSAGE TO PHARMACY PO ONE (11:35)
[2018-02-16] MEDS ORDERED: dextrose 50%-water 50ml dispensing syringe IV PRN ×2 (11:35)
[2018-02-16] MEDS ORDERED: dextrose ORAL solution 15 GM/59 ML bottle PO PRN ×2 (11:35)
[2018-02-16] MEDS ORDERED: glucagon, human recombinant 1mg kit SUBCUT PRN (11:35)
[2018-02-16] MEDS ORDERED: insulin regular, human vial - multi-dose SQ SCH (11:35)
[2018-02-16] MEDS: furosemide 40mg/4ml inj IV PRN (12:24)
[2018-02-16] MEDS: albumin (human) 25% 100ml IV 100 ML IV SCH ×2 (12:27→23:19)
[2018-02-16] MEDS: sodium ferric gluc complex inj 125 MG in normal saline 100ml IV soln 100 ML IV SCH (13:42)
[2018-02-16] MEDS: mineral oil/petrolatum ophthal oint EACHEYE SCH ×2 (16:09→19:56)
[2018-02-16] MEDS ORDERED: VANCOMYCIN LEVEL IV NR (20:30)
[2018-02-16] MEDS: insulin glargine (Lantus) pen - multi-dose SQ SCH (21:00)
[2018-02-16 22:57] LABS: HEMATOCRIT 26.6 % (42.0-52.0); HEMOGLOBIN 8.6 g/dl (14.0-17.9); MEAN CORPUSCULAR HGB CONC 32.2 % (33.0-36.5); MEAN CORPUSCULAR VOLUME 89.9 FL (78-98); MEAN PLATELET VOLUME 9.7 FL (7.4-10.4); PLATELET COUNT 172 X10'3 (140-440); RED BLOOD COUNT 2.96 X10'6 (4.70-6.10); RED CELL DISTRIBUTION WIDTH 15.6 % (11.5-14.5)
[2018-02-16] MEDS: fat emulsion IV 200 ML, MVI, adult No.4 with vit. K 10 ML, Trace element-5 inj. 1 ML in... IV SCH ×4 (23:19)
[2018-02-17] VITALS (22 sets, daily range): BP systolic 110–156; BP diastolic 38–58
[2018-02-17] MEDS: diltiazem 30mg tablet PO SCH ×5 (02:34→19:40)
[2018-02-17] MEDS: mineral oil/petrolatum ophthal oint EACHEYE SCH ×4 (02:51→19:40)
[2018-02-17 02:56] LABS: ABG BASE EXCESS -3.4 mmol/L (-2.0-3.0); ABG HCO3 21.8 mmol/L (22.0-26.0); ABG OXYGEN SATURATION 95.3 % (95-98); ABG PCO2 (T) 42.1 mmHg (35.0-48.0); ABG PH (T) 7.338 (7.350-7.450); ABG PO2 (T) 83.7 mmHg (83-108); FCOHb 0.3 % (0.5-1.5); FMetHb 0.1 % (0.3-1.12); FO2Hb 94.9 % (94-100); MINUTE VOLUME 8 L/min; PATIENT TEMPERATURE 38.1; PEEP 5 cm H2O; RESPIRATORY RATE 16 b/min; RESPIRATORY RATE (OBSERVED) 17 b/min; TIDAL VOLUME 450 mL; TOTAL HEMOGLOBIN 8.4 G/dl (14.0-18.0)
[2018-02-17 03:32] LABS: BASOPHILS % (AUTO) 0 % (0-1); EOSINOPHILS # (AUTO) 0.5 X10'3 (0-0.9); EOSINOPHILS % (AUTO) 4.4 % (0-6); HEMATOCRIT 24.9 % (42.0-52.0); HEMOGLOBIN 8.1 g/dl (14.0-17.9); LYMPHOCYTES # (AUTO) 0.2 X10'3 (1.1-4.8); LYMPHOCYTES % (AUTO) 2.2 % (21-51); MEAN CORPUSCULAR HEMOGLOBIN 29.4 PG (27.0-31.0); MEAN CORPUSCULAR HGB CONC 32.5 % (33.0-36.5); MEAN CORPUSCULAR VOLUME 90.4 FL (78-98); MEAN PLATELET VOLUME 10.2 FL (7.4-10.4); MONOCYTES % (AUTO) 9.1 % (2-12); NEUTROPHILS # (AUTO) 9.5 X10'3 (1.8-7.7); NEUTROPHILS % (AUTO) 84.3 % (42-75); PLATELET COUNT 154 X10'3 (140-440); RED BLOOD COUNT 2.75 X10'6 (4.70-6.10); RED CELL DISTRIBUTION WIDTH 15.6 % (11.5-14.5); WHITE BLOOD COUNT 11.3 X10'3 (4.5-11.0)
[2018-02-17 03:46] LABS: INR 1.2 INR; PARTIAL THROMBOPLASTIN TIME 43 SECONDS (22-32); PROTHROMBIN TIME 12.3 SECONDS (9.0-12.0)
[2018-02-17 03:47] LABS: ALANINE AMINOTRANSFERASE 15 U/L (12-78); ALBUMIN 2.2 G/DL (3.4-5.0); ALBUMIN/GLOBULIN RATIO 0.8 (1.1-1.5); ALKALINE PHOSPHATASE 46 IU/L (46-116); ANION GAP 4 (8-16); ASPARTATE AMINO TRANSFERASE 20 U/L (10-37); BILIRUBIN,TOTAL 0.4 MG/DL (0.1-1.0); BLOOD UREA NITROGEN 42 MG/DL (7-18); BUN/CREATININE RATIO 31.6 (5.4-32.0); CALCIUM 7.7 MG/DL (8.5-10.1); CHLORIDE 108 MMOL/L (99-107); CREATININE 1.33 MG/DL (0.60-1.10); GLUCOSE 133 MG/DL (70-104); MAGNESIUM 1.8 MG/DL (1.5-2.4); PHOSPHORUS 3.4 MG/DL (2.3-4.5); POTASSIUM 3.7 MMOL/L (3.5-5.1); SODIUM 138 MMOL/L (135-145); TOTAL CARBON DIOXIDE 25.7 MMOL/L (24-32); TOTAL PROTEIN 4.9 G/DL (6.4-8.2); TRIGLYCERIDES 33 MG/DL (20-135); eGFR 51 ML/MIN
[2018-02-17] MEDS: furosemide 40mg/4ml inj IV PRN (04:01)
[2018-02-17] MEDS: K, MAG and/or Phos replacement - Verify level? MC SCH (08:00)
[2018-02-17] MEDS: albumin (human) 25% 100ml IV 100 ML IV SCH ×2 (09:26→16:49)
[2018-02-17] MEDS: cefepime 1GM/NS ADD-VANTAGE 100 ML IV SCH ×2 (09:26→16:50)
[2018-02-17] MEDS: vancomycin/NS 1 GM ADD-VANTAGE 250 ML IV SCH ×2 (09:26→21:16)
[2018-02-17] MEDS: pantoprazole 40 MG vial IV SCH ×2 (09:27→19:40)
[2018-02-17] MEDS: methylnaltrexone br 12mg/0.6ml inj***SubQ only SQ SCH (09:27)
[2018-02-17] MEDS: sodium ferric gluc complex inj 125 MG in normal saline 100ml IV soln 100 ML IV SCH (09:27)
[2018-02-17] MEDS ORDERED: furosemide 40mg/4ml inj IV PRN (11:35)
[2018-02-17 14:23] LABS: HEMATOCRIT 26.1 % (42.0-52.0); HEMOGLOBIN 8.4 g/dl (14.0-17.9); MEAN CORPUSCULAR HEMOGLOBIN 29.1 PG (27.0-31.0); MEAN CORPUSCULAR HGB CONC 32.2 % (33.0-36.5); MEAN CORPUSCULAR VOLUME 90.4 FL (78-98); MEAN PLATELET VOLUME 10.5 FL (7.4-10.4); PLATELET COUNT 167 X10'3 (140-440); RED BLOOD COUNT 2.88 X10'6 (4.70-6.10); RED CELL DISTRIBUTION WIDTH 15.5 % (11.5-14.5); WHITE BLOOD COUNT 13.4 X10'3 (4.5-11.0)
[2018-02-17] MEDS: furosemide 40mg/4ml inj IV SCH (17:29)
[2018-02-17] MEDS: NORepinephrine 8mg/ 250ml NS 250 ML IV SCH (17:55)
[2018-02-17 20:14] LABS: HEMATOCRIT 25.9 % (42.0-52.0); HEMOGLOBIN 8.4 g/dl (14.0-17.9); MEAN CORPUSCULAR HEMOGLOBIN 29.2 PG (27.0-31.0); MEAN CORPUSCULAR HGB CONC 32.4 % (33.0-36.5); MEAN PLATELET VOLUME 10.7 FL (7.4-10.4); PLATELET COUNT 183 X10'3 (140-440); RED BLOOD COUNT 2.88 X10'6 (4.70-6.10); RED CELL DISTRIBUTION WIDTH 15.6 % (11.5-14.5); WHITE BLOOD COUNT 13.7 X10'3 (4.5-11.0)
[2018-02-17 20:23] LABS: MAGNESIUM 1.8 MG/DL (1.5-2.4)
[2018-02-17] MEDS: insulin glargine (Lantus) pen - multi-dose SQ SCH (21:00)
[2018-02-18] VITALS (24 sets, daily range): BP systolic 99–238; BP diastolic 43–60
[2018-02-18] MEDS: cefepime 1GM/NS ADD-VANTAGE 100 ML IV SCH ×2 (00:47→07:21)
[2018-02-18] MEDS: furosemide 40mg/4ml inj IV SCH ×2 (00:47→11:00)
[2018-02-18] MEDS: albumin (human) 25% 100ml IV 100 ML IV SCH (00:48)
[2018-02-18] MEDS: fat emulsion IV 100 ML, MVI, adult No.4 with vit. K 10 ML, Trace element-5 inj. 1 ML in... IV SCH ×4 (01:55)
[2018-02-18] MEDS: diltiazem 30mg tablet PO SCH ×4 (01:55→20:08)
[2018-02-18] MEDS: mineral oil/petrolatum ophthal oint EACHEYE SCH ×4 (01:55→20:08)
[2018-02-18 03:23] LABS: BASOPHILS % (AUTO) 0 % (0-1); EOSINOPHILS # (AUTO) 0.4 X10'3 (0-0.9); EOSINOPHILS % (AUTO) 2.6 % (0-6); HEMATOCRIT 24.9 % (42.0-52.0); HEMOGLOBIN 8.1 g/dl (14.0-17.9); LYMPHOCYTES # (AUTO) 0.1 X10'3 (1.1-4.8); LYMPHOCYTES % (AUTO) 1.1 % (21-51); MEAN CORPUSCULAR HEMOGLOBIN 29.2 PG (27.0-31.0); MEAN CORPUSCULAR HGB CONC 32.3 % (33.0-36.5); MEAN CORPUSCULAR VOLUME 90.4 FL (78-98); MEAN PLATELET VOLUME 10.3 FL (7.4-10.4); MONOCYTES # (AUTO) 0.8 X10'3 (0-0.9); MONOCYTES % (AUTO) 5.9 % (2-12); NEUTROPHILS # (AUTO) 12.4 X10'3 (1.8-7.7); NEUTROPHILS % (AUTO) 90.4 % (42-75); PLATELET COUNT 180 X10'3 (140-440); RED BLOOD COUNT 2.76 X10'6 (4.70-6.10); RED CELL DISTRIBUTION WIDTH 15.9 % (11.5-14.5); WHITE BLOOD COUNT 13.7 X10'3 (4.5-11.0)
[2018-02-18 03:30] LABS: ABG BASE EXCESS -5.2 mmol/L (-2.0-3.0); ABG HCO3 20.2 mmol/L (22.0-26.0); ABG OXYGEN SATURATION 92.2 % (95-98); ABG PCO2 (T) 37.7 mmHg (35.0-48.0); ABG PH (T) 7.344 (7.350-7.450); ABG PO2 (T) 60.7 mmHg (83-108); FCOHb 0.3 % (0.5-1.5); FMetHb 0.3 % (0.3-1.12); FO2Hb 91.6 % (94-100); MINUTE VOLUME 9 L/min; PATIENT TEMPERATURE 36.3; PEEP 5 cm H2O; RESPIRATORY RATE 18 b/min; RESPIRATORY RATE (OBSERVED) 18 b/min; TIDAL VOLUME 450 mL; TOTAL HEMOGLOBIN 8.2 G/dl (14.0-18.0)
[2018-02-18 03:41] LABS: INR 1.2 INR; PARTIAL THROMBOPLASTIN TIME 39 SECONDS (22-32); PROTHROMBIN TIME 12.1 SECONDS (9.0-12.0)
[2018-02-18 03:52] LABS: ALANINE AMINOTRANSFERASE 21 U/L (12-78); ALBUMIN 2.9 G/DL (3.4-5.0); ALKALINE PHOSPHATASE 209 IU/L (46-116); ANION GAP 7 (8-16); ASPARTATE AMINO TRANSFERASE 33 U/L (10-37); BILIRUBIN,TOTAL 2.3 MG/DL (0.1-1.0); BLOOD UREA NITROGEN 63 MG/DL (7-18); BUN/CREATININE RATIO 27.8 (5.4-32.0); CALCIUM 8.1 MG/DL (8.5-10.1); CHLORIDE 105 MMOL/L (99-107); CREATININE 2.27 MG/DL (0.60-1.10); GLUCOSE 155 MG/DL (70-104); MAGNESIUM 1.9 MG/DL (1.5-2.4); PHOSPHORUS 4.5 MG/DL (2.3-4.5); POTASSIUM 3.9 MMOL/L (3.5-5.1); SODIUM 137 MMOL/L (135-145); TOTAL PROTEIN 5.7 G/DL (6.4-8.2); eGFR 28 ML/MIN
[2018-02-18] MEDS: pantoprazole 40 MG vial IV SCH ×2 (07:21→20:08)
[2018-02-18] MEDS: sodium ferric gluc complex inj 125 MG in normal saline 100ml IV soln 100 ML IV SCH (07:31)
[2018-02-18] MEDS: K, MAG and/or Phos replacement - Verify level? MC SCH (08:00)
[2018-02-18] MEDS ORDERED: VANCOMYCIN LEVEL IV ONE (08:40)
[2018-02-18] MEDS: vancomycin/NS 1 GM ADD-VANTAGE 250 ML IV SCH (09:00)
[2018-02-18] MEDS ORDERED: linezolid 600mg/300ml PREMIX 300 ML IV SCH (12:00)
[2018-02-18] MEDS ORDERED: furosemide inj 100 MG in normal saline 100ml IV soln 90 ML IV SCH (12:30)
[2018-02-18 13:47] LABS: ALANINE AMINOTRANSFERASE 27 U/L (12-78); ALBUMIN 2.5 G/DL (3.4-5.0); ALBUMIN/GLOBULIN RATIO 0.9 (1.1-1.5); ALKALINE PHOSPHATASE 284 IU/L (46-116); ANION GAP 9 (8-16); ASPARTATE AMINO TRANSFERASE 40 U/L (10-37); BILIRUBIN,TOTAL 2.4 MG/DL (0.1-1.0); BLOOD UREA NITROGEN 73 MG/DL (7-18); BUN/CREATININE RATIO 26.4 (5.4-32.0); CALCIUM 8.1 MG/DL (8.5-10.1); CHLORIDE 105 MMOL/L (99-107); CREATININE 2.76 MG/DL (0.60-1.10); GLUCOSE 174 MG/DL (70-104); POTASSIUM 4.3 MMOL/L (3.5-5.1); SODIUM 137 MMOL/L (135-145); TOTAL CARBON DIOXIDE 23.4 MMOL/L (24-32); TOTAL PROTEIN 5.3 G/DL (6.4-8.2); eGFR 22 ML/MIN
[2018-02-18] MEDS: linezolid 600mg/300ml PREMIX 300 ML IV SCH (14:25)
[2018-02-18] MEDS ORDERED: furosemide 40mg/4ml inj IV SCH ×2 (16:20→18:00)
[2018-02-18] MEDS: insulin glargine (Lantus) pen - multi-dose SQ SCH (20:08)
[2018-02-19] VITALS (12 sets, daily range): BP systolic 96–128; BP diastolic 47–64
[2018-02-19] MEDS: linezolid 600mg/300ml PREMIX 300 ML IV SCH ×2 (00:03→11:49)
[2018-02-19] MEDS: diltiazem 30mg tablet PO SCH ×3 (02:43→11:50)
[2018-02-19] MEDS: mineral oil/petrolatum ophthal oint EACHEYE SCH ×3 (02:43→11:49)
[2018-02-19] MEDS: fat emulsion IV 100 ML, MVI, adult No.4 with vit. K 10 ML, Trace element-5 inj. 1 ML in... IV SCH ×4 (02:45)
[2018-02-19 03:10] LABS: BASOPHILS % (AUTO) 0 % (0-1); EOSINOPHILS % (AUTO) 0 % (0-6); HEMATOCRIT 30.5 % (42.0-52.0); HEMOGLOBIN 9.9 g/dl (14.0-17.9); LYMPHOCYTES # (AUTO) 0.2 X10'3 (1.1-4.8); LYMPHOCYTES % (AUTO) 0.8 % (21-51); MEAN CORPUSCULAR HEMOGLOBIN 29.1 PG (27.0-31.0); MEAN CORPUSCULAR HGB CONC 32.3 % (33.0-36.5); MEAN CORPUSCULAR VOLUME 90.1 FL (78-98); MEAN PLATELET VOLUME 11.1 FL (7.4-10.4); MONOCYTES # (AUTO) 0.9 X10'3 (0-0.9); MONOCYTES % (AUTO) 3.9 % (2-12); NEUTROPHILS # (AUTO) 22.3 X10'3 (1.8-7.7); NEUTROPHILS % (AUTO) 95.3 % (42-75); PLATELET COUNT 279 X10'3 (140-440); RED BLOOD COUNT 3.39 X10'6 (4.70-6.10); RED CELL DISTRIBUTION WIDTH 15.9 % (11.5-14.5); WHITE BLOOD COUNT 23.4 X10'3 (4.5-11.0)
[2018-02-19 03:12] LABS: INR 1.2 INR; PARTIAL THROMBOPLASTIN TIME 42 SECONDS (22-32); PROTHROMBIN TIME 11.9 SECONDS (9.0-12.0)
[2018-02-19 03:14] LABS: ALANINE AMINOTRANSFERASE 30 U/L (12-78); ALBUMIN 2.2 G/DL (3.4-5.0); ALBUMIN/GLOBULIN RATIO 0.7 (1.1-1.5); ALKALINE PHOSPHATASE 285 IU/L (46-116); ANION GAP 11 (8-16); ASPARTATE AMINO TRANSFERASE 32 U/L (10-37); BILIRUBIN,TOTAL 2.1 MG/DL (0.1-1.0); BLOOD UREA NITROGEN 85 MG/DL (7-18); BUN/CREATININE RATIO 24.6 (5.4-32.0); CHLORIDE 102 MMOL/L (99-107); CREATININE 3.46 MG/DL (0.60-1.10); GLUCOSE 231 MG/DL (70-104); MAGNESIUM 1.9 MG/DL (1.5-2.4); PHOSPHORUS 5.3 MG/DL (2.3-4.5); POTASSIUM 4.8 MMOL/L (3.5-5.1); SODIUM 134 MMOL/L (135-145); TOTAL CARBON DIOXIDE 21.2 MMOL/L (24-32); TOTAL PROTEIN 5.5 G/DL (6.4-8.2); eGFR 17 ML/MIN
[2018-02-19 03:59] LABS: TOTAL CELLS COUNTED 100
[2018-02-19 04:03] LABS: ANISOCYTOSIS 1+; LARGE PLATELETS MANY; PLATELET ESTIMATE INCREASED
[2018-02-19 04:30] LABS: ABG BASE EXCESS -9.4 mmol/L (-2.0-3.0); ABG HCO3 16.3 mmol/L (22.0-26.0); ABG PCO2 (T) 35.5 mmHg (35.0-48.0); ABG PH (T) 7.282 (7.350-7.450); ABG PO2 (T) 69.3 mmHg (83-108); FCOHb 0.3 % (0.5-1.5); FMetHb 0.1 % (0.3-1.12); FO2Hb 91.6 % (94-100); MINUTE VOLUME 10 L/min; PATIENT TEMPERATURE 37.4; PEEP 5 cm H2O; RESPIRATORY RATE 18 b/min; RESPIRATORY RATE (OBSERVED) 22 b/min; TIDAL VOLUME 450 mL; TOTAL HEMOGLOBIN 11.1 G/dl (14.0-18.0)
[2018-02-19] MEDS: K, MAG and/or Phos replacement - Verify level? MC SCH (07:31)
[2018-02-19] MEDS: pantoprazole 40 MG vial IV SCH (07:42)
[2018-02-19] MEDS: methylnaltrexone br 12mg/0.6ml inj***SubQ only SQ SCH (07:42)
[2018-02-19] MEDS ORDERED: cefepime 1GM/NS ADD-VANTAGE 100 ML IV SCH (08:00)
[2018-02-19] MEDS: sodium ferric gluc complex inj 125 MG in normal saline 100ml IV soln 100 ML IV SCH (08:09)
[2018-02-19 09:47] LABS: ANION GAP 15 (8-16); BLOOD UREA NITROGEN 90 MG/DL (7-18); BUN/CREATININE RATIO 23.3 (5.4-32.0); CALCIUM 8.3 MG/DL (8.5-10.1); CHLORIDE 100 MMOL/L (99-107); CREATININE 3.87 MG/DL (0.60-1.10); GLUCOSE 227 MG/DL (70-104); MAGNESIUM 1.9 MG/DL (1.5-2.4); PHOSPHORUS 5.7 MG/DL (2.3-4.5); SODIUM 132 MMOL/L (135-145); TOTAL CARBON DIOXIDE 17.5 MMOL/L (24-32); eGFR 15 ML/MIN
[2018-02-19 09:48] LABS: POTASSIUM 5.2 MMOL/L (3.5-5.1)
[2018-02-19] MEDS ORDERED: LORazepam 2 mg/ml vial IV PRN (11:45)
[2018-02-19] MEDS ORDERED: morphine 10mg/0.5ml (conc. morphine) oral syringe PO PRN (11:45)
[2018-02-19] MEDS ORDERED: morphine 10mg/ml inj. IV PRN (11:45)
[2018-02-19] MEDS ORDERED: lactobacillus rhamnosus 10,000 MMU CELLS/CAPSULE PO SCH (20:00)
== END 2018-02-19 18:19 | disposition expired | DRG 326 ==
LOC: ER 16:57 → ED HOLD 23:35 → CICU 2S 02-11 00:45 → UNDODISIN 02-19 18:19
PROVIDERS: ADMIT Internal Medicine Critical Care Medicine; ATTEND Internal Medicine Critical Care Medicine
PROC: 02HV33Z Insertion of Infusion Device into Superior Vena Cava, Percutaneous Approach (ICD-10-PCS; 2018-02-10)
PROC: B548ZZA Ultrasonography of Superior Vena Cava, Guidance (ICD-10-PCS; 2018-02-10)
PROC: 30233N1 Transfusion of Nonautologous Red Blood Cells into Peripheral Vein, Percutaneous Approach (ICD-10-PCS; 2018-02-11)
PROC: 0DB58ZX Excision of Esophagus, Via Natural or Artificial Opening Endoscopic, Diagnostic (ICD-10-PCS; 2018-02-11)
PROC: 0DB68ZX Excision of Stomach, Via Natural or Artificial Opening Endoscopic, Diagnostic (ICD-10-PCS; 2018-02-11)
PROC: 0D778ZZ Dilation of Stomach, Pylorus, Via Natural or Artificial Opening Endoscopic (ICD-10-PCS; 2018-02-11)
PROC: 30233N1 Transfusion of Nonautologous Red Blood Cells into Peripheral Vein, Percutaneous Approach (ICD-10-PCS; 2018-02-13)
PROC: 4A02XM4 Measurement of Cardiac Total Activity, External Approach (ICD-10-PCS; 2018-02-13)
PROC: 3E033HZ Introduction of Radioactive Substance into Peripheral Vein, Percutaneous Approach (ICD-10-PCS; 2018-02-13)
PROC: 5A1955Z Respiratory Ventilation, Greater than 96 Consecutive Hours (ICD-10-PCS; 2018-02-15)
PROC: 0DHA3UZ Insertion of Feeding Device into Jejunum, Percutaneous Approach (ICD-10-PCS; 2018-02-15)
PROC: 0D160ZA Bypass Stomach to Jejunum, Open Approach (ICD-10-PCS; principal; 2018-02-15 08:10)
DX: K25.4 Chronic or unspecified gastric ulcer with hemorrhage (principal); J69.0 Pneumonitis due to inhalation of food and vomit; J96.90 Respiratory failure, unspecified, unspecified whether with hypoxia or hypercapnia; J21.9 Acute bronchiolitis, unspecified; K31.1 Adult hypertrophic pyloric stenosis; E46 Unspecified protein-calorie malnutrition; N17.9 Acute kidney failure, unspecified; K31.5 Obstruction of duodenum; K26.9 Duodenal ulcer, unspecified as acute or chronic, without hemorrhage or perforation; R57.1 Hypovolemic shock; I11.0 Hypertensive heart disease with heart failure; K21.0 Gastro-esophageal reflux disease with esophagitis; I50.9 Heart failure, unspecified; N40.0 Benign prostatic hyperplasia without lower urinary tract symptoms; M19.90 Unspecified osteoarthritis, unspecified site; Z51.5 Encounter for palliative care; Z90.49 Acquired absence of other specified parts of digestive tract; Z88.0 Allergy status to penicillin; Z79.899 Other long term (current) drug therapy; Z68.25 Body mass index [BMI] 25.0-25.9, adult
CPT/HCPCS: 36415; 36556; 36600; 43239; 43249; 71045; 74018; 74176; 78451; 80047; 80053; 80069; 80202; 81001; 81003; 82803; 82810; 82948; 83036; 83540; 83550; 83605; 83735; 83880; 84100; 84132; 84134; 84145; 84478; 85007; 85018; 85025; 85027; 85610; 85730; 86870; 86880; 86885; 86900; 86901; 86902; 86905; 86920; 86922; 87040; 87070; 87088; 87502; 87503; 88305; 88312; 92616; 93005; 93017; 93306; 94002; 94003; 94667; 94760; 96365; 96368; 96375; 99152; 99153; 99291; A6253; A6258; A6266; A7000; A7526; A9500; C1726; C9113; G0378; J0131; J0280; J0456; J0692; J0696; J1815; J1940; J1956; J2001; J2020; J2060; J2185; J2250; J2270; J2354; J2370; J2405; J2704; J2916; J3010; J3370; J3480; J3490; J7030; J7060; J7120; P9016; P9045; P9047